=== PATIENT | male | born 1970 | race American Indian/Alaskan Native ===

== ENCOUNTER 2019-11-02 08:43 | Day surgery (SDC) | payer OTHER ==
[~2019-11-02] VITALS: Ht 188 cm; Wt 121.1 kg
--- NOTE | 2019-11-02 10:02 | NUR ---
11/02/19 1002 Sheets,Kimberly 0931 PT ARRIVED TO PACU ON RA DUE TO PT PULLING OFF NC, O2 SAT 94%. RESP EVEN AND UNLABORED. PT EYES OPEN AND TALKING TO RN. PT REORIENTED TO PACU, PT THEN FALLS EASILY BACK TO SLEEP. PT DNEIES PAIN.
--- NOTE | 2019-11-03 07:14 | OR ---
[facility] [address] [place], [place] [address] Signed DATE OF OPERATION: 11/02/2019 SURGEON: Kwasi Rocha MD PREOPERATIVE DIAGNOSIS: Screening. POSTOPERATIVE DIAGNOSES: 1. 7 mm sessile polyp at proximal transverse colon (tattoo). 2. 5 mm sessile polyp at mid transverse colon. 3. Moderate sigmoid diverticulosis. PROCEDURE PERFORMED: Colonoscopy with hot biopsy and injection of tattoo proximal transverse colon. ESTIMATED BLOOD LOSS: None. INDICATIONS: Jean is a 49-year-old gentleman, asked to see me for his initial screening colonoscopy. He has no lower GI complaints. There is no family history of colon cancer or polyps. In the office, I gave Jean a pamphlet on colonoscopy. We looked at that together along with the risks including, but not limited to gas bloating, crampy abdominal pain, bleeding, perforation requiring surgery, and missed diagnosis. He also understands the need for IV conscious sedation. He expressed understanding and wished to proceed. PROCEDURE NOTE: Jean was taken into our endoscopy suite and placed in the left lateral decubitus position. He was given a total of 10 mg of Versed and 200 mcg of fentanyl to cover the case. A digital rectal exam had been performed and this was unremarkable. The adult colonoscope was introduced and advanced under direct visualization of camera without difficulty. He had some angulation in the proximal sigmoid colon. It took a few minutes to get through that area with some extra sedation. We then use some extra sedation as we came around the hepatic flexure down into the cecum itself. We had used some abdominal compression. His prep was quite excellent. We could easily see the appendiceal orifice and the ileocecal valve. The scope was slowly withdrawn. The above two mentioned polyps were easily removed with the help of hot biopsy followup forceps. We placed a small tattoo next to the polyp in the proximal transverse colon. He also has diverticula in the sigmoid colon. They were moderate in size, moderate in number, Electronically Signed By: KWASI ROCHA MD 11/03/19 0714 PATIENT NAME: JEAN KENDRICK OPERATIVE REPORT DATE OF : 66 REPORT #: [id number] PHYSICIAN: KWASI ROCHA MD PCP: WILLA PRATT REPORT IS CONFIDENTIAL AND NOT TO BE RELEASED WITHOUT AUTHORIZATION [facility] [address] [place] [id number] Signed and scattered about. The rectum itself was unremarkable. Upon retroflexion of scope, there was no additional pathology noted above the anal canal. After this, the gas was suctioned out and the colonoscope removed. Jean tolerated the procedure quite well. RECOMMENDATIONS: I will see Jean back in my office in 7 to 14 days to review his results. Kwasi Rocha MD [facility]/THUL /[id number] cc: Willa Rocha MD Copies: WILLA PRATT ANDREW L MD ~ Electronically Signed By: KWASI ROCHA MD 11/03/19 0714 PATIENT NAME: JEAN KENDRICK OPERATIVE REPORT DATE OF : 66 REPORT #: [id number] PHYSICIAN: KWASI ROCHA MD PCP: WILLA PRATT REPORT IS CONFIDENTIAL AND NOT TO BE RELEASED WITHOUT AUTHORIZATION
--- NOTE | 2019-11-03 18:19 | PATH ---
[facility] [address] [place], [place] [address] Signed SPECIMEN(S): A PROXIMAL TRANSVERSE COLON POLYP SPECIMEN(S): B MID TRANSVERSE COLON POLYP SPECIMEN SOURCE: A. PROXIMAL TRANSVERSE COLON POLYP B. MID TRANSVERSE COLON POLYP CLINICAL HISTORY: Screening, diverticulosis, polyps. MICROSCOPIC DESCRIPTION: Histologic sections of all submitted blocks are examined by light microscopy. These findings, together with the gross examination, support the pathologic diagnosis. FINAL PATHOLOGIC DIAGNOSIS: A. Colon, proximal transverse, polyp, polypectomy: - Tubular adenoma. - Negative for high-grade dysplasia or malignancy. B. Colon, mid transverse, polyp, polypectomy: - Tubular adenoma. - Negative for high-grade dysplasia or malignancy. NAL:emb:C2NR GROSS DESCRIPTION: Two specimens are received in two containers, labeled "JW." A. The specimen, labeled "JW, 1, proximal transverse on the requisition," is received in formalin and consists of three soft pink to shelley tissue fragments that vary from 0.2-0.3 cm that are submitted in toto in cassette A1. B. The specimen, labeled "JW, 2, mid transverse on the requisition," is received in formalin and consists of a 0.3 cm soft pink to shelley tissue fragment that is submitted in toto in cassette B1. SS (under the direct supervision of a pathologist) The Gross Description was prepared using a voice recognition system. The report was reviewed for accuracy; however, sound-alike word errors, addition and/or deletions may occur. If there is any question about this report, please contact Client Services. PERFORMING LABORATORY: The technical component was performed by [employer], [address] [place] [id number] ([employer] Worker: Maryam Devine MD; CLIA# [id number]). PATIENT NAME: JEAN KENDRICK PATHOLOGY DATE OF : 66 REPORT #: [id number] PHYSICIAN: NELLY PATHOLOGY PCP: TAMAR PRATT REPORT IS CONFIDENTIAL AND NOT TO BE RELEASED WITHOUT AUTHORIZATION [facility] [address] [place], [place] [address] Signed Professional interpretation was performed by [facility], [address] [address] ([employer] Worker: Kevin Holbrook MD; CLIA# [id number]). Diagnostician: Nolvia Maddox MD Pathologist Electronically Signed 11/03/2019 Copies: ~ PATIENT NAME: JEAN KENDRICK PATHOLOGY DATE OF : 66 REPORT #: [id number] PHYSICIAN: NELLY PATHOLOGY PCP: TAMAR PRATT REPORT IS CONFIDENTIAL AND NOT TO BE RELEASED WITHOUT AUTHORIZATION
== END 2019-11-02 10:48 | disposition home or self-care (01) ==
LOC: DS 08:43 → OPS 08:43 → DS 09:45 → OPS 10:48
PROVIDERS: Colon & Rectal Surgery
PROC: 3E0H8GC Introduction of Other Therapeutic Substance into Lower GI, Via Natural or Artificial Opening Endoscopic (ICD-10-PCS; 2019-11-02)
PROC: 0DBL8ZZ Excision of Transverse Colon, Via Natural or Artificial Opening Endoscopic (ICD-10-PCS; principal; 2019-11-02 09:45)
DX: Z12.11 Encounter for screening for malignant neoplasm of colon (principal); D12.3 Benign neoplasm of transverse colon; K57.30 Diverticulosis of large intestine without perforation or abscess without bleeding; J30.9 Allergic rhinitis, unspecified
CPT/HCPCS: 99153; G0500; J2250; J3010; J7121

== ENCOUNTER 2025-06-22 05:55 | Day surgery (SDC) | payer BC, OTHER ==
[~2025-06-22] VITALS: Ht 190.5 cm; Wt 110.0 kg
[~2025-06-22 05:55] MED LIST: LACTATED RINGER'S 1,000 ML IV SCH; LIPITOR10 MG PO; MULTIVITAMINS1 EAC8 PO; SILDENAFIL20 MG PO
[2025-06-22 06:05] VITALS: BP 124/66
[2025-06-22] MEDS ORDERED: VIAGRA25 MG PO (06:06)
[2025-06-22] MEDS ORDERED: LIDOCAINE HCL 2% 5 ML SDV ONE (07:00)
[2025-06-22] MEDS ORDERED: IBLOOD GLUCOSE TEST STRIP 1 EA TEST VI PRN (07:00)
[2025-06-22] MEDS ORDERED: LIDOCAINE HCL 1% 5 ML SDV INJ ONE (07:00)
--- NOTE | 2025-06-22 08:01 | NUR ---
06/22/25 0801 Nyla English 0750-RESUMED CARE FROM NATY PADILLA. PATIENT NONAROUSABLE 4 LNC RR EVEN. SR HR 60'S. IVF INFUSING. ABDOMEN SOFT. 0755-PATIENT AROUSING OPENING EYES ORIENTED TO PACU DENIES PAIN OR NAUSEA. ENCOURAGED TO PASS GAS. PLACED ON RA RR EVEN. PATIENT REQUESTING WATER.
[2025-06-22 08:19] VITALS: BP 132/88
== END 2025-06-22 08:25 | disposition home or self-care (01) ==
LOC: DS 05:55
PROVIDERS: ATTEND Surgery
PROC: 0DJD8ZZ Inspection of Lower Intestinal Tract, Via Natural or Artificial Opening Endoscopic (ICD-10-PCS; principal; 2025-06-22 07:30)
DX: Z12.11 Encounter for screening for malignant neoplasm of colon (principal); K57.30 Diverticulosis of large intestine without perforation or abscess without bleeding; E11.9 Type 2 diabetes mellitus without complications; E78.5 Hyperlipidemia, unspecified; F17.210 Nicotine dependence, cigarettes, uncomplicated; H40.10X0 Unspecified open-angle glaucoma, stage unspecified; Z86.0100 Personal history of colon polyps, unspecified; Z79.899 Other long term (current) drug therapy
CPT/HCPCS: 00811; J2003; J2704; J7121